=== PATIENT | male | born 1970 | race American Indian/Alaskan Native ===

== ENCOUNTER 2017-05-07 11:34 | Emergency (ER) | payer SELFPAY ==
[2017-05-07 11:51] VITALS: BP 108/76
--- NOTE | 2017-05-07 12:43 | Emergency Department Report ---
HPI - General Chief Complaint: Medical Clearance Time Seen by Provider: 05/07/17 12:42 - HPI HPI: Patient reports that he is having sinus drainage for over 2 weeks now and is getting worse he said he took some sinus [id number] medication yesterday and it didn't help. He said he would have an headache that feels like sinus headache over the past 3 days on and off. He said he has some cough and and postnasal drainage. Reports nasal congestion and drainage. Denies any chest pain or shortness of breath. Denies any fever or chills. Sinus pain and headache is 3 out of 10 on and off. Feels achy. Sinus medication did not work. Denies any dizziness or blurred vision. Denies any nausea or vomiting. Patient denies history of migraine or any other medical problems. He said he has sinus problems. ED Past Medical Hx - Past Medical History Previous Medical History?: Yes Additional medical history: recurrent sinus problems - Surgical History Past Surgical History?: No - Family History Family history: no significant - Social History Smoking Status: Current Every Day Smoker Substance Use Type: None (single) - Medications Home Medications: Home Medications Medication Instructions Recorded Confirmed Last Taken Type Amoxicillin/K Clav Tab [Augmentin 1 tab PO Q12HR #20 tab 05/07/17 Unknown Rx 875 mg] Cetirizine HCl [ZyrTEC] 10 mg PO QAM #14 capsule 05/07/17 Unknown Rx Fluticasone [Flonase] 1 spray NS QDAY #1 bottle 05/07/17 Unknown Rx Ibuprofen [Motrin] 600 mg PO Q8H PRN #12 tablet 05/07/17 Unknown Rx predniSONE [Deltasone] 50 mg PO QDAY #5 tab 05/07/17 Unknown Rx ED Review of Systems ROS: Stated complaint: SINUS PROBLEMS, HEADACHE Other details as noted in HPI Comment: All other systems reviewed and negative Constitutional: no symptoms reported Eyes: denies: eye pain, eye discharge ENT: congestion (sinus congestion and nasal drainage with postnasal drainage.). denies: ear pain, throat pain, dental pain, hearing loss, epistaxis Respiratory: cough. denies: orthopnea, shortness of breath, SOB with exertion, SOB at rest, stridor, wheezing Cardiovascular: denies: chest pain, palpitations, edema, syncope Gastrointestinal: denies: abdominal pain, nausea, vomiting Musculoskeletal: denies: back pain, joint swelling, arthralgia, myalgia Skin: denies: rash Neurological: headache. denies: weakness, numbness, paresthesias, confusion, abnormal gait, vertigo Physical Exam - Physical Exam Vital Signs: Vital Signs 05/07/17 11:43 Temperature 98.0 F Pulse Rate 96 H Respiratory 16 Rate Blood Pressure 108/76 Blood Pressure 108/76 [Left] O2 Sat by Pulse 97 Oximetry General: This is a 46-year-old male well-nourished well-developed in no acute distress. Physical Exam: Head: Normocephalic, atraumatic, no abrasion, no bruising and no contusion. Eyes: Biateral pupils equal and reactive to light, bilateral EOM intact.. Bilateral conjunctival and sclera without injection, normal accommodation. Ears: Bilateral EAC without any redness drainage or swelling, bilateral TM congested without any erythema .bilateral tragus is normal and nontender. No auricular abnormality. No Mastoid bones tenderness. Nose: Moist, erythema and congested with clear drainage. Frontal sinuses tender to palpate. Mouth: Moist, no phrayngeal erythema or exudate. No tonsillar enlargement or exudate. No peritonsillar abscess.. Uvula is midline and oral airways patent. tongue is normal Neck: Supple, No Cervical adenopathy, full range of motion and no C-spine tenderness. No swelling or tracheal deviation Cardiovascular: S1, S2. Regular rate and rhythm. No murmur. Capillary refill is less then 3 seconds. Lungs: Clear to auscultate bilaterally. No rhonchi, wheezes or rales. No chest wall tenderness MSK: Strength 5/5 in all extremities. No joint deformity or crepitus. Normal inspection. Full range of motion to all extremities. Back: No vertebral or paraspinal tenderness. Full range of motion and normal inspection. She unable to ambulate without any difficulties. Neurological: GCS at 15, patient alert and oriented 3. Negative Romberg, negative pronator drift. Gait is normal. No motor or sensory deficit. Bilateral reflexes are normal. Speech is clear. No facial drooping. Normal sensation. Extremities: No clubbing, cyanosis or edema. +2 pulses. No neurovascular compromise Skin: Clean, dry and intact. No rash or lesions. Psych: Normal mood and behavior. ED Course Vital Signs 05/07/17 11:43 Temperature 98.0 F Pulse Rate 96 H Respiratory 16 Rate Blood Pressure 108/76 Blood Pressure 108/76 [Left] O2 Sat by Pulse 97 Oximetry - Reevaluation(s) Reevaluation #1: 05/07/17 14:36 Patient stable throughout ED stay. ED Medical Decision Making - Medical Decision Making ED course: Patient hair reporting headache with sinus congestion and drainage that been ongoing. Nubq-cfd-[id number] medication did not help. Physical findings for acute bacterial sinusitis, headache. Diagnosis and treatment plan discussed the patient and he voiced understanding. Patient does not have a primary care physician so I instructed him to follow-up at [facility] to call today to schedule an appointment for follow-up visit in 2 days. Patient discharged home with prescription for Augmentin, Flonase, prednisone and Zyrtec. Critical care attestation.: If time is entered above; I have spent that time in minutes in the direct care of this critically ill patient, excluding procedure time. ED Disposition Clinical Impression: Acute bacterial rhinosinusitis Headache Qualifiers: Headache type: unspecified Headache chronicity pattern: episodic headache Intractability: not intractable Qualified Code(s): R51 - Headache Disposition: DC-01 TO HOME OR SELFCARE Is pt being admited?: No Does the pt Need Aspirin: No Condition: Stable Instructions: Acute Bacterial Rhinosinusitis (ED), Acute Headache (ED) Additional Instructions: Please increase her fluid intake Flush nostrils out with saline nasal wash as this will help to relieve nasal congestion Take Antibiotic as prescribed Please take Zyrtec and Flonase for 14 days Take Motrin as prescribed to help to relieve her headache for a couple days. Follow up with [facility] Prescriptions: Amoxicillin/K Clav Tab [Augmentin 875 mg] 1 tab PO Q12HR #20 tab Cetirizine HCl [ZyrTEC] 10 mg PO QAM #14 capsule Fluticasone [Flonase] 1 spray NS QDAY #1 bottle Ibuprofen [Motrin] 600 mg PO Q8H PRN #12 tablet PRN Reason: Pain predniSONE [Deltasone] 50 mg PO QDAY #5 tab Referrals: [facility] [Outside] - 05/09/17 Forms: Work/School Release Form(ED)
== END 2017-05-07 14:47 | disposition home or self-care (01) ==
LOC: ED 11:34
DX: J01.80 Other acute sinusitis (principal); B96.89 Other specified bacterial agents as the cause of diseases classified elsewhere; F17.210 Nicotine dependence, cigarettes, uncomplicated
CPT/HCPCS: 99282